=== PATIENT | male | born 1940 | race Caucasian/White ===

== ENCOUNTER 2018-04-30 13:21 | Emergency (ER) | payer MEDICARE, OTHER ==
--- NOTE | 2018-04-30 15:02 | ED Physician Documentation ---
PD HPI WOUND RECHECK - Stated complaint Stated Complaint: SUTURE REMOVAL - Chief complaint Chief Complaint: Heent - Histroy obtained from History obtained from: Patient - History of Present Illness Location: Scalp Timing - onset: How many days ago (10) Associated symptoms: No: Fever, Redness, Swelling, Drainage Similar symptoms before: Diagnosis (laceration) Recently seen: Emergency Dept - Additional information Additional information: 78-year-old male was visiting friends in [place] when he fell down some steps and lacerated the top of his scalp. He has some elisabeth in there that are ready to come out. This happened about 10 days ago when he did have CT scan done of the cervical spine and head. He has no complaints at this time states that he has had very little pain associated with this and is anxious to get the elisabeth out. Review of Systems Constitutional: denies: Fever Eyes: denies: Decreased vision Ears: denies: Ear pain Nose: denies: Rhinorrhea / runny nose, Congestion Throat: denies: Sore throat Respiratory: denies: Cough GI: denies: Nausea, Vomiting Skin: reports: Laceration (s) Musculoskeletal: denies: Neck pain, Back pain, Extremity pain Neurologic: reports: Head injury. denies: Generalized weakness, Focal weakness , Numbness, Confused, Altered mental status, LOC PD PAST MEDICAL HISTORY - Past Medical History Cardiovascular: Hypertension, High cholesterol Respiratory: Asthma Endocrine/Autoimmune: Type 2 diabetes GI: None : Benign prostate hypertrophy HEENT: None Psych: None Musculoskeletal: None Derm: None - Past Surgical History Past Surgical History: No General: Colonoscopy HEENT: Tonsil/Adenoidectomy - Present Medications Home Medications: Ambulatory Orders Medication Instructions Recorded Confirmed Albuterol 1 gm MC Q6HR PRN 05/23/13 04/20/16 Aspirin [Aspir 81] 81 mg PO DAILY 05/23/13 04/20/16 Atorvastatin Calcium [Lipitor] 10 mg PO DAILY 05/23/13 05/23/13 Cholecalciferol (Vitamin D3) 1,000 unit PO DAILY 05/23/13 04/20/16 [Vitamin D] Clobetasol Propionate [Clobetasol 0.5 gm MC DAILY 05/23/13 04/20/16 Propionate Micro] Exenatide [Byetta] 10 mcg SQ BID 05/23/13 04/20/16 Finasteride 5 mg PO DAILY 05/23/13 04/20/16 Fluticasone/Salmeterol [Advair 1 each IH BID 05/23/13 04/20/16 500-50 Diskus] Metformin HCl [Glumetza] 500 mg PO BID 05/23/13 04/20/16 Valsartan/Hydrochlorothiazide 2 each PO DAILY 05/23/13 04/20/16 [Diovan Hct 160-12.5 mg Tab] - Allergies Allergies/Adverse Reactions: Allergies Allergy/AdvReac Type Severity Reaction Status Date / Time No Known Drug Allergies Allergy Verified 04/30/18 13:25 - Social History Does the pt smoke?: No Smoking Status: Never smoker Does the pt drink ETOH?: Yes Does the pt have substance abuse?: No - Immunizations Immunizations are current?: Yes - POLST Patient has POLST: No PD ED PE NORMAL - Vitals Vital signs reviewed: Yes (normal ) - General General: Alert and oriented X 3, No acute distress, Well developed/nourished - HEENT HEENT: PERRL, EOMI, Other (over the parietal/occipital area of the right scalp is a healing laceation with 14 elisabeth in it. There is a portion of the wound toward the posterior aspect that appear macerated and has not as yet healed. 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, No motor deficit, No sensory deficit, Normal speech Eye Opening: Spontaneous Motor: Obeys Commands Verbal: Oriented GCS Score: 15 - Psych Psych: Normal mood, Normal affect Results - Vitals Vitals: Vital Signs - 24 hr 04/30/18 13:24 Temperature 35.7 C L Heart Rate 72 Respiratory 16 Rate Blood Pressure 127/63 O2 Saturation 96 Oxygen O2 Source Room air Procedures - Suture/staple Removal (location) scalp Suture/staple removal: # elisabeth (14), Dehiscence, Other (with minor dehiscence of the posterior aspect of this wound the elisabeth are removed the wound is cleaned, reapproximated and dermabond is applied.) PD MEDICAL DECISION MAKING - ED course Complexity details: considered differential, d/w patient, d/w family ED course: 78-year-old male with a scalp laceration that has been stapled 10 days ago has his elisabeth removed and a portion of the wound is glued. He tolerates this well. - Sepsis Event Vital Signs: Vital Signs - 24 hr 04/30/18 13:24 Temperature 35.7 C L Heart Rate 72 Respiratory 16 Rate Blood Pressure 127/63 O2 Saturation 96 Oxygen O2 Source Room air Departure - Departure Disposition: 01 Home, Self Care Clinical Impression: Scalp laceration Qualifiers: Encounter type: subsequent encounter Qualified Code(s): S01.01XD - Laceration without foreign body of scalp, subsequent encounter Condition: Stable Instructions: ED Stap Removal No Complication Follow-Up: Kamron Simeon MD [Primary Care Provider] -
[2018-04-30 15:29] VITALS: BP 102/58
== END 2018-04-30 15:29 | disposition home or self-care (01) ==
LOC: ED 13:21
DX: S01.01XD Laceration without foreign body of scalp, subsequent encounter (principal); W10.9XXD Fall (on) (from) unspecified stairs and steps, subsequent encounter; T81.33XA Disruption of traumatic injury wound repair, initial encounter; Y83.8 Other surgical procedures as the cause of abnormal reaction of the patient, or of later complication, without mention of misadventure at the time of the procedure; I10 Essential (primary) hypertension; E11.9 Type 2 diabetes mellitus without complications; E78.00 Pure hypercholesterolemia, unspecified; Z79.84 Long term (current) use of oral hypoglycemic drugs; Z79.82 Long term (current) use of aspirin
CPT/HCPCS: 12001; 99282; 99283

== ENCOUNTER 2021-07-15 10:59 | Outpatient (CLI) | payer MEDICARE, OTHER ==
[2021-07-15 12:26] LABS: PSA TOTAL 2.748 ng/mL (0.000-2.000)
[2021-07-15 13:47] LABS: PSA FREE 0.61 ng/mL (0.16-2.81)
== END 2021-07-15 11:00 | disposition home or self-care (01) ==
LOC: LAB 10:59
PROVIDERS: ATTEND Family Medicine
DX: R97.20 Elevated prostate specific antigen [PSA] (principal)
CPT/HCPCS: 36415; 84153; 84154

== ENCOUNTER 2023-07-10 16:34 | Outpatient (CLI) | payer MEDICARE, OTHER | END 2023-07-10 16:35 | disposition critical access hospital (66) | LOC: EMS 16:34 | DX: R55 Syncope and collapse (principal); R42 Dizziness and giddiness | CPT/HCPCS: A0425; A0429 ==

== ENCOUNTER 2023-07-10 16:55 | Emergency (ER) | payer MEDICARE, OTHER ==
[2023-07-10] MEDS ORDERED: SODIUM CHLORIDE 0.9% 1,000 ML IV STA (16:57)
--- NOTE | 2023-07-10 16:59 | ED Physician Documentation ---
PD HPI SYNCOPE - Stated complaint Stated Complaint: SYNCOPE - History obtained from History obtained from: Patient - Additional information Additional information: 83-year-old gentleman with type 2 diabetes had a syncopal episode today. He was feeling off all morning, with a stomach upset did not eat or drink much. Subsequently vomited. At time after that he was on the driveway with family and he started to feel dizzy and he passed out briefly and was helped to the ground. There is no associated chest pain or trouble breathing. He feels normal now. No injury. Paramedics did orthostatics prehospital which were negative. They noted his blood sugar to be In the 80s. PD PAST MEDICAL HISTORY - Past Medical History Cardiovascular: Hypertension, High cholesterol Respiratory: Asthma Endocrine/Autoimmune: Type 2 diabetes GI: None : Benign prostate hypertrophy HEENT: None Psych: None Musculoskeletal: None Derm: None - Past Surgical History Past Surgical History: No General: Colonoscopy HEENT: Tonsil/Adenoidectomy - Present Medications Home Medications: Ambulatory Orders Medication Instructions Recorded Confirmed Albuterol 1 gm MC Q6HR PRN 05/23/13 04/20/16 Aspirin [Aspir 81] 81 mg PO DAILY 05/23/13 04/20/16 Atorvastatin Calcium [Lipitor] 10 mg PO DAILY 05/23/13 05/23/13 Cholecalciferol (Vitamin D3) 1,000 unit PO DAILY 05/23/13 04/20/16 [Vitamin D] Clobetasol Propionate [Clobetasol 0.5 gm MC DAILY 05/23/13 04/20/16 Propionate Micro] Exenatide [Byetta] 10 mcg SQ BID 05/23/13 04/20/16 Finasteride 5 mg PO DAILY 05/23/13 04/20/16 Fluticasone/Salmeterol [Advair 1 each IH BID 05/23/13 04/20/16 500-50 Diskus] Metformin HCl [Glumetza] 500 mg PO BID 05/23/13 04/20/16 Valsartan/Hydrochlorothiazide 2 each PO DAILY 05/23/13 04/20/16 [Diovan Hct 160-12.5 mg Tab] - Allergies Allergies/Adverse Reactions: Allergies Allergy/AdvReac Type Severity Reaction Status Date / Time No Known Drug Allergies Allergy Verified 04/30/18 13:25 - Social History Does the pt smoke?: No Smoking Status: Never smoker Does the pt drink ETOH?: Yes Does the pt have substance abuse?: No - Immunizations Immunizations are current?: Yes - POLST Patient has POLST: No PD ED PE NORMAL - Vitals Vital signs reviewed: Yes - General General: Alert and oriented X 3, No acute distress - HEENT HEENT: PERRL, EOMI - Neck Neck: Supple, no meningeal sign, No bony TTP - Cardiac Cardiac: RRR, No murmur - Respiratory Respiratory: No respiratory distress, Clear bilaterally - Abdomen Abdomen: Non tender - Neuro Neuro: Alert and oriented X 3, Normal speech Eye Opening: Spontaneous Motor: Obeys Commands Verbal: Oriented GCS Score: 15 - Psych Psych: Normal mood, Normal affect Results - Vitals Vitals: Vital Signs - 24 hr 07/10/23 07/10/23 16:58 17:20 Temperature 35.5 C L Heart Rate 75 82 Respiratory 18 18 Rate Blood Pressure 116/51 L 114/69 O2 Saturation 99 100 Oxygen O2 Source Room air - EKG (time done) 1709 EKG releavant findings:: EKG personally interpreted by author of this note. Relevant findings are: Rate: Rate (enter#) (66) Rhythm: NSR [place]: Normal Intervals: Prolonged QT, Other (Short CHAVA without delta) Ischemia: Non specific changes. No: ST elevation c/w ischemia Computer interpretation: Agree with computer - Labs Labs: Laboratory Tests 07/10/23 07/10/23 07/10/23 17:01 17:01 17:01 WBC 20.1 H RBC 4.22 L Hgb 13.0 L Hct 39.4 L MCV 93.4 MCH 30.8 MCHC 33.0 RDW 13.8 Plt Count 275 MPV 10.0 Neut # (Auto) Not Reportable Lymph # (Auto) Not Reportable Benzie # (Auto) Not Reportable Eos # (Auto) Not Reportable Baso # (Auto) Not Reportable Absolute Nucleated RBC Not Reportable Total Counted 100 Band Neuts % (Manual) 2 Abnorm Lymph % (Manual) 0 Nucleated RBC % Not Reportable Neutrophils # (Manual) 17.9 H Lymphocytes # (Manual) 0.8 L Monocytes # (Manual) 1.2 H Eosinophils # (Manual) 0.2 Basophils # (Manual) 0.0 Differential Comment MANUAL DIFFERENTIAL WBC Morphology 1+ TOXIC GRANULATION Platelet Estimate NORMAL (130-450,000) Platelet Morphology NORMAL APPEARANCE RBC Morph Micro Appear NORMAL APPEARANCE Sodium 143 Potassium 3.7 Chloride 105 Carbon Dioxide 29 Anion Gap 9.0 BUN 23 H Creatinine 1.3 Estimated GFR (MDRD) 53 L Glucose 96 Calcium 9.7 Magnesium 1.1 L Total Bilirubin 0.5 AST 18 ALT 23 Alkaline Phosphatase 73 Troponin I High Sens 4.0 Total Protein 6.4 Albumin 3.8 Globulin 2.6 Albumin/Globulin Ratio 1.5 Lipase 16 PD Medical Decision Making - ED course Complexity details: reviewed old records (Prior echocardiogram in April 2016 showing hyperdynamic function with EF greater than 70%, grade 1 diastolic dysfunction, normal RV, moderate circumferential pericardial effusion) ED course: 83-year-old gentleman with a syncopal episode today, it was preceded by some GI complaints which have resolved and he feels normal now. His EKG is abnormal with long QT and other interval abnormalities which were not present on prior EKG 8 years ago. He has elevated white count on CBC, otherwise fairly normal labs. Including CMP. Note made that he was admitted here for episode of syncope in 2015 at which time he did have a pericardial effusion ended up getting transferred to [facility]. Now he has high risk syncope with abnormal EKG and long QT. Note we only have echocardiography here Thursday through and today being Thursday evening will need to be transferred for evaluation. The search for transfer bed was begun about 5:30 PM. Spoke with Ramesh Bowden, senior market intelligence consultant at [facility] who agrees he should be transferred for eval/echo. He recommends a goal of potassium greater than 4 and magnesium greater than 2. Also recommends a second troponin a bit even in the lack of chest pain. Waiting for callback from hospitalist now. Accepted approximately 7:18 PM to [facility] by Bossman Ellington, hospitalist. Departure - Departure Disposition: 02 Transfer Acute Care Hosp Clinical Impression: Syncope, Long QT interval, Abnormal EKG Condition: Serious
[2023-07-10 17:08] LABS: BASOPHILS % (AUTO) 0.5 %; EOSINOPHILS % (AUTO) 3.2 %; HCT - HEMATOCRIT 39.4 % (42.0-52.0); LYMPHOCYTES % (AUTO) 8.6 %; MEAN CORPUSCULAR HEMOGLOBIN 30.8 pg (27.0-31.0); MEAN CORPUSCULAR VOLUME 93.4 fL (80.0-94.0); MONOCYTES % (AUTO) 7.4 %; NEUTROPHILS % (AUTO) 79.9 %; PLT - PLATELET COUNT 275 10^3/uL (130-450); RED BLOOD COUNT 4.22 10^6/uL (4.70-6.10); RED CELL DISTRIBUTION WIDTH 13.8 % (12.0-15.0); WHITE BLOOD COUNT 20.1 x10^3/uL (4.8-10.8)
[2023-07-10 17:10] LABS: ABNORMAL LYMPHS % (MANUAL) 0 %
[2023-07-10 17:23] LABS: ALBUMIN 3.8 g/dL (3.2-5.5); ALBUMIN/GLOBULIN RATIO 1.5 (1.0-2.2); BILIRUBIN,TOTAL 0.5 mg/dL (0.2-1.0); CALCIUM 9.7 mg/dL (8.5-10.3); CREATININE 1.3 mg/dL (0.6-1.3); POTASSIUM 3.7 mmol/L (3.5-4.5); TOTAL PROTEIN 6.4 g/dL (6.4-8.9)
[2023-07-10 18:12] LABS: BAND NEUTROPHILS % (MANUAL) 2 %; EOSINOPHILS # (MANUAL) 0.2 10^3/uL (0-0.7); LYMPHOCYTES # (MANUAL) 0.8 10^3/uL (1.5-3.5); LYMPHOCYTES % (MANUAL) 4 %; MONOCYTES # (MANUAL) 1.2 10^3/uL (0.0-1.0); NEUTROPHILS # (MANUAL) 17.9 10^3/uL (1.5-6.6)
[2023-07-10 18:13] LABS: DIFFERENTIAL COMMENT MANUAL DIFFERENTIAL; PLATELET ESTIMATE, MANUAL NORMAL (130-450,000) (NORMAL); PLATELET MORPHOLOGY NORMAL APPEARANCE (NORMAL); RBC MORPHOLOGY (MULTIPLE) NORMAL APPEARANCE (NORMAL); WBC MORPHOLOGY (MULTIPLE) 1+ TOXIC GRANULATION (NORMAL)
[2023-07-10] MEDS ORDERED: POTASSIUM BICARB 25 MEQ TABLET PO STA (18:25)
[2023-07-10] MEDS ORDERED: MAGNESIUM SULFATE 2 GRAM 2 GM/50 ML BAG IV ONE (21:14)
[2023-07-11 06:32] LABS: BASOPHILS % (AUTO) 0.3 %; EOSINOPHILS # (AUTO) 0.5 10^3/uL (0.0-0.7); EOSINOPHILS % (AUTO) 3.6 %; HCT - HEMATOCRIT 39.6 % (42.0-52.0); HGB - HEMOGLOBIN 13.2 g/dL (14.0-18.0); LYMPHOCYTES # (AUTO) 2.3 10^3/uL (1.5-3.5); LYMPHOCYTES % (AUTO) 17.7 %; MEAN CORPUSCULAR HEMOGLOBIN 30.8 pg (27.0-31.0); MEAN CORPUSCULAR HGB CONC 33.3 g/dL (32.0-36.0); MEAN CORPUSCULAR VOLUME 92.3 fL (80.0-94.0); MEAN PLATELET VOLUME 10.2 fL (7.4-11.4); MONOCYTES # (AUTO) 0.8 10^3/uL (0.0-1.0); MONOCYTES % (AUTO) 6.4 %; NEUTROPHILS # (AUTO) 9.4 10^3/uL (1.5-6.6); NEUTROPHILS % (AUTO) 71.6 %; PLT - PLATELET COUNT 276 10^3/uL (130-450); RED BLOOD COUNT 4.29 10^6/uL (4.70-6.10); RED CELL DISTRIBUTION WIDTH 13.6 % (12.0-15.0); WHITE BLOOD COUNT 13.1 x10^3/uL (4.8-10.8)
[2023-07-11 06:44] LABS: MAGNESIUM 1.5 mg/dL (1.7-2.3); POTASSIUM 3.2 mmol/L (3.5-4.5)
[2023-07-11] MEDS ORDERED: POTASSIUM BICARB 25 MEQ TABLET PO STA ×2 (07:07→17:16)
[2023-07-11] MEDS ORDERED: MAGNESIUM SULFATE 2 GRAM 2 GM/50 ML BAG IV ONE (07:07)
[2023-07-11] MEDS ORDERED: POTASSIUM CHLOR 10 MEQ/100 ML 10 MEQ/100 ML BAG IV ONE (07:07)
[2023-07-11] MEDS ORDERED: OLANZapine 10 MG VIAL IM ONE (08:13)
[2023-07-11] MEDS ORDERED: metFORMIN 500 MG TABLET PO STA (08:25)
--- NOTE | 2023-07-11 08:55 | ED Physician Documentation ---
Restraint [id number] - Immediate Situation Face to Face Evaluation Date: 07/11/23 Face to Face Evaluation Time: 08:52 Restraint Classification: Violent, physical, chemical Restraint Type: Soft extremity, Side rails X 4, Chemical - Patient's Reaction & Behaviors Safety: Physically unsafe, Non-compliant Verbal: Demanding Harm: Potential harm to self, Verbalizes intent to harm Physical: Aggressive behavior (he is wanting to leave and stating to pull at his IV, in which he is gwetting mag and potassium supplements. He is ineffectively pulling off the wrap/tape on the IV. He is wanting to get dressed and is standing in room. pushing back at staff as they come close. Threatening to hit staff. ) Other: Disruption of therapy - Behavioral Condition Attitude: Guarded (he feels he is being kidnapped and assaulted. ) Behavior: Uncooperative, Belligerent, Agitated Orientation: Person, Place, Time (he cans ay end of June. ), Situation (I asked if he knew why he had come to the ER and why being treated with IV infusions. He says he did not remember. He seemed to remember when I described it to him. I then told him our concerns are he had a fainting epsidoe/abnormal ECG electrically, with risk of faint/syncope/arrhythmia/.) Mood: Angry, Anxious Behavioral Condition Comments: after directly describing the concerns and possible consequences of not being treated and leaving AMA, he was not able to reiterate it even. I asked him what the consequences might be of not being further treated and he said "nothing really". I therefore do not feel he is making informed decision and seems more cognitively impaired, perhaps some dementia. Can further check some labs. His is coming to ED and will value her input into his ability to comprehend situation/consequences. I might feel okay with their shared decision of level of treatment. Would need to talk with her as well. - Evaluation System status changes from initial ED note: he appears more agitated than notes from last evening. Nursing noted he was more restless and agitated this morning. Will check for blood sugar, offered food, calming voice/discussions. Pertinent History/Illicit Drugs/Medications/Results: no reported dementia meds/etc. - Plan Need to Continue or Terminate Violent or Chemical Restraint: Will re-asses with michael and he talking to him. It may also help just having daytime if he has nocturnal agitation.
--- NOTE | 2023-07-11 09:39 | ED Physician Documentation ---
ED Addendum - Addendum Addendum: 07/11/23 09:37 The patient's and brother I believe are here. The patient is calmer, relaxed, smiling. Nursing has been reassessing the patient and his now looking at soft restraint removal. The patient states he had gotten anxious which got him agitated. At this point talking with he and his , they are both still on track with wanting to continue the IV electrolyte supplementations and looking at transfer for further cardiac evaluation.
[2023-07-11] MEDS ORDERED: LORazepam 2 MG/ML VIAL IVP STA (15:16)
[2023-07-11] MEDS ORDERED: OLANZapine 10 MG VIAL IM STA (15:16)
--- NOTE | 2023-07-11 16:01 | ED Physician Documentation ---
ED Addendum - Addendum Addendum: 07/11/23 15:57 The patient has been doing well through the day with good interaction and had some lunch and was present and conversant with his and brother. I had updated them early afternoon that we are still seeking transfer bed but had not heard confirmation on 1 as yet. His had left to do some things at home. His brother was still present. The patient became agitated again and not seeming to answer questions or be willing to listen and focused on wanting to get up and pull out his IV. Asked if there was any interventions we could do, he was not answering. He was swearing at staff and physically pushing out at staff members who tried to assist wrapping his IV. Similar to this morning, the patient showed agitation and verbal and physical belligerence. No clear precipitators per se although he had said he needed to go the bathroom. We did help hold him down to place back on restraints and he was given a dose of medication of olanzapine as he had this morning to help with his anxiety. I talked further with his who showed up back in the room shortly after. I asked if she felt safe at home and if he had had any aggressive behaviors at home. She denied any of those. She states she did feel safe. He has had episodes of confusion and disorientation at times at home so concern for may be some mild dementia developing. However he has not shown agitation and unusual environments or out of the home such as restaurants or such according to the . The is now stating she would prefer for the patient to go home. He is seeming more calmer as medications are have an effect but clearly needs to have nursing assessments to ensure no untoward effects. I talked with the and if the pattern is similar to this morning that he relaxes and is able to be more normally conversant and interactive and the 2 of them together can make a decision knowing the risks and benefits, in particular the risks of discontinuing treatment, then they would be allowed to be discharged. We were rechecking his potassium and magnesium level to see if they have improved reasonably.
--- NOTE | 2023-07-11 16:07 | ED Physician Documentation ---
Restraint [id number] - Immediate Situation Face to Face Evaluation Date: 07/11/23 Face to Face Evaluation Time: 16:02 Restraint Classification: Violent, physical, chemical Restraint Type: Locked extremity - Patient's Reaction & Behaviors Safety: Physically safe, Non-compliant Verbal: Demanding, Screaming/Yelling Harm: Potential harm to others Physical: Aggressive behavior, Fighting restraints Other: Disruption of therapy (IV was disrupted in pt with marked electrolyte disorder.) - Behavioral Condition Attitude: Guarded Behavior: Uncooperative Orientation: Person, Place Mood: Angry - Evaluation System status changes from initial ED note: He had been cooperative and pleasant for hours through the day and then upset/belligerent just shortly to now. Pertinent History/Illicit Drugs/Medications/Results: no reported dementia meds/etc. - Plan Need to Continue or Terminate Violent or Chemical Restraint: when more compliant with IV/meds so as to not dirupt therapy nor assault staff.
[2023-07-11 16:17] LABS: CALCIUM 9.8 mg/dL (8.5-10.3); MAGNESIUM 1.7 mg/dL (1.7-2.3); POTASSIUM 3.5 mmol/L (3.5-4.5)
[2023-07-11] MEDS ORDERED: MAGNESIUM OXIDE 400 MG TABLET PO STA (17:15)
--- NOTE | 2023-07-11 17:28 | ED Physician Documentation ---
ED Addendum - Addendum Addendum: 07/11/23 17:25 The patient became much more relaxed again is sitting up in remorseful that he had been agitated earlier. He does remember but states he is not really clear why he got so angry. His is in the room and helping being supportive. At this point he is able to tell me orientation to person place and time as well as the situation why he is here in the concerns that we have and both he and his are able to reiterate back the potential bad outcomes of going home to include fainting, fainting and falling with injury, abnormal conduction rhythm, and sudden . They are both aware of these potential this and still would want to be discharged home. Did did talk with his primary care physician out of [facility] who called back to the ER. I reviewed the findings and course with her. He talked she correction she called and talked to the patient's and discussed it with them. They are still wanting to be discharged. The patient's primary care did state they would be able to arrange a follow-up visit on Thursday and arrange follow-up echocardiogram, cardiac evaluation and rhythm monitoring such as Zio patch. Ideally would be transferred but there are no beds available as as yet today for [facility] or other facilities. I did discuss the episodes of agitation with the primary care as well. She states she would evaluate for better for dementia. I feel he most likely has some likely baseline dementia with situational agitation. I again asked his if she had experienced any agitation or aggressiveness from the patient at home and she denied it and felt safe at home. I feel the patient and his are making informed decision and still would like to be discharged and they can do so at their autonomy. Disposition: The patient is discharged home declining further care Disposition: 1. Intermittent agitation 2. Likely mild dementia 3. Syncopal episode 4. electrolyte disturbance with hypomagnesemia and hypokalemia 5. EKG conductive abnormalities 07/11/23 17:28
[2023-07-11 17:55] VITALS: BP 127/73; O2SAT 98
== END 2023-07-11 18:00 | disposition left against medical advice (07) ==
LOC: EDUNIT# → ED 16:55
DX: R55 Syncope and collapse (principal); I45.81 Long QT syndrome; E83.42 Hypomagnesemia; E87.6 Hypokalemia; R45.1 Restlessness and agitation; Z78.1 Physical restraint status; Z20.822 Contact with and (suspected) exposure to COVID-19
CPT/HCPCS: 36415; 80048; 80053; 83690; 83735; 84484; 85025; 87635; 93005; 96361; 96365; 96366; 96368; 96372; 96375; 99284; 99285; A9270; J2060